=== PATIENT | male | born 1985 | race Caucasian/White ===

== ENCOUNTER → 2019-08-18 09:55 | Outpatient (CLI) | payer MEDICAID, SELFPAY ==
--- NOTE | 2019-08-18 10:03 | EKG12_ITS ---
Test Reason : IRREGULAR Blood Pressure : / mmHG Vent. Rate : 061 BPM Atrial Rate : 375 BPM P-R Int : 000 ms QRS Dur : 094 ms QT Int : 390 ms P-R-T Axes : 000 001 -04 degrees QTc Int : 392 ms Atrial fibrillation Abnormal ECG Confirmed by MARCIA QUILES, IZA ([id number]), news copy editor KYLE CALDERON ([id number]) on 08/18/2019 2:19:49 PM Referred By: Melody Solorzano Confirmed By:IZA KENNEDY MD
== END ==
PROVIDERS: PCP Nurse Practitioner Family; Referring Provider Nurse Practitioner Family; Visit Provider Nurse Practitioner Family
DX: I49.9 Cardiac arrhythmia, unspecified (principal)
CPT/HCPCS: 93005

== ENCOUNTER → 2019-08-24 15:37 | Outpatient (CLI) | payer MEDICAID, SELFPAY ==
[2019-08-24 14:40] VITALS: BMI 29.7
[2019-08-24 17:16] LABS: Free T3 3.6 pg/mL (2.18-3.98); Thyroid Stim Hormone (TSH) 4.83 uIU/mL (0.358-3.74)
== END ==
PROVIDERS: PCP Nurse Practitioner Family; Referring Provider Specialist; Visit Provider Specialist
DX: I48.0 Paroxysmal atrial fibrillation (principal)
CPT/HCPCS: 36415; 84436; 84443; 84481

== ENCOUNTER → 2019-09-08 07:54 | Outpatient (CLI) | payer MEDICAID, SELFPAY ==
[2019-08-24 14:40] VITALS: BMI 29.7
--- NOTE | 2019-09-08 07:54 | ECHOCS_ITS ---
Reason For Study: AFIB Procedure This was a 2D Doppler, Color Flow transthoracic echocardiogram. The study was technically difficult. Contrast injection was performed. Exam performed in department. Left Ventricle Normal LV size. The estimated ejection fraction is 55 %. No evidence for diastolic dysfunction. No regional wall motion abnormalities noted. Right Ventricle Normal RV size. Normal systolic function. Atria Normal left atrium. Normal right atrium. No doppler evidence for ASD. Mitral Valve There is no mitral valve stenosis. Trivial mitral valve insufficiency. Tricuspid Valve There is no tricuspid stenosis. No tricuspid valve insufficiency. Unable to estimate RV systolic pressure due to insufficient tricuspid regurgitant envelope. Aortic Valve Trisinus/trileaflet aortic valve. There is no aortic stenosis. No aortic valve insufficiency. Pulmonic Valve There is no pulmonic valvular stenosis. No pulmonic valve insufficiency. Great Vessels Normal aortic root. Pericardium/Pleural No pericardial effusion. Medication 22 gauge I.V. with prn adaptor inserted into right arm. Diluted definity 5.0ml given slow IV push to enhance endocardial definition. MMode/2D Measurements & Calculations LVIDd: 5.1 cm IVSd: 0.75 cm Ao root diam: 3.3 cm LVIDs: 4.0 cm LVPWd: 0.73 cm RVDd: 3.8 cm FS: 21.0 % LAV(MOD-bp): 48.1 ml EDV(MOD-sp4): 85.0 ml EDV(MOD-sp2): 116.8 ml LAV(MOD-bp) Indexed: 20.3 ml/m2 ESV(MOD-sp4): 60.2 ml EF(MOD-sp2): 53.5 % LAV(MOD-sp2): 40.3 ml EF(MOD-sp4): 29.2 % LAV(MOD-sp4): 49.2 ml SV(MOD-sp4): 24.8 ml SV(MOD-sp2): 62.5 ml LA A4 area: 17.8 cm2 LA dimension(2D): 3.7 cm RA A4 area: 15.3 cm2 Doppler Measurements & Calculations Ao V2 max: 118.2 cm/sec LV V1 max: 92.8 cm/sec PA V2 max: 87.5 cm/sec Ao max P.6 mmHg LV V1 max P.5 mmHg Interpretation Summary The estimated ejection fraction is 55 %. No evidence for diastolic dysfunction. Trivial mitral valve insufficiency. The study was technically difficult. Contrast injection was performed. Ordering Physician: Misael Gann Referring Physician: ALCIDES HOROWITZ Performed By: Rosa Schafer, JAIMEE, RVT
== END ==
PROVIDERS: PCP Nurse Practitioner Family; Referring Provider Specialist; Visit Provider Specialist
DX: I48.0 Paroxysmal atrial fibrillation (principal); I10 Essential (primary) hypertension; E78.5 Hyperlipidemia, unspecified
CPT/HCPCS: 93306; Q9957; A4216; C8929

== ENCOUNTER → 2019-09-17 20:19 | Outpatient (CLI) | payer MEDICAID, SELFPAY ==
[2019-08-24 14:40] VITALS: BMI 29.7
== END ==
PROVIDERS: PCP Nurse Practitioner Family; Referring Provider Specialist; Visit Provider Specialist
DX: G47.10 Hypersomnia, unspecified (principal); I48.0 Paroxysmal atrial fibrillation; I10 Essential (primary) hypertension
CPT/HCPCS: 95810

== ENCOUNTER → 2019-12-02 07:27 | Outpatient (CLI) | payer MEDICAID, SELFPAY ==
[2019-08-24 14:40] VITALS: BMI 29.7
[2019-11-04 07:47] VITALS: BMI 28.7
--- NOTE | 2019-12-02 12:43 | STRESSREP_ITS ---
Stress Test Report Date: 12/02/2019 Procedure: Exercise tolerance test/imaging study Indications: Dyspnea Consent: Per the patient Procedure: The patient exercised on a Kishan protocol for 9 minutes and 1 second achieving a peak heart rate of 230 bpm (124 % predicted maximal heart rate) with a peak blood pressure 166/88 mmHg and a peak MET capacity of 10.1 METs. The baseline ECG demonstrated atrial fibrillation, isolated PVC. The peak exercise ECG demonstrated no significant ischemic changes. EKG during recovery revealed no significant ischemic changes. [There were no cardiac dysrhythmias pretest, during exercise, or recovery]. The functional capacity was considered normal for age. There was [no complaint of chest discomfort during exercise or recovery]. The examination was discontinued secondary to dyspnea. Impression: 1. Technically adequate (percent predicted maximal heart rate greater than 85%) exercise tolerance test 2. Stress test is negative for exercise-induced EKG changes of ischemia 3. The test test is negative for exercise-induced chest pain 4. Functional capacity is normal for age 5. Nuclear images pending Myocardial perfusion imaging study: Technique: The patient was injected with 15 mCi of technetium 99m Cardiolite and subsequently rest SPECT Cardiolite nuclear imaging was obtained in the horizontal long, vertical long, and short axis views. The patient exercised on a Kishan protocol. Please see above for details. The patient was injected with 45 mCi of technetium 99m Cardiolite and subsequently stress SPECT Cardiolite nuclear imaging was obtained in the horizontal long, vertical long, and short axis views. A gated Cardiolite study at peak stress was obtained. Interpretation: Rest and stress SPECT Cardiolite nuclear imaging status post realignment, normalization, and attenuation correction, demonstrates mildly decreased radioisotope uptake in the inferior wall prior to attenuation correction. After attenuation correction there is overall no evidence of significant fixed or reversible defect suggestive of significant ischemia or infarction. These findings are suggestive of diaphragmatic attenuation artifact. The gated Cardiolite study demonstrates no significant regional wall motion abnormalities. The reported LVEF is 60 %. Impression: 1. There is no evidence of significant ischemia or infarction. 2. The gated Cardiolite study reports an LVEF of 60 %. This note was generated with [employer] software. It may contain incorrect words, spelling, and punctuation that were not noted in checking the note before signing.
== END ==
PROVIDERS: PCP Nurse Practitioner Family
DX: R94.31 Abnormal electrocardiogram [ECG] [EKG] (principal)
CPT/HCPCS: 78452; 93017; A9500; A4216

== ENCOUNTER → 2021-01-06 08:39 | Outpatient (CLI) | payer MEDICAID, SELFPAY ==
[2019-11-04 07:47] VITALS: BMI 28.7
--- NOTE | 2021-01-06 08:44 | EKG12_ITS ---
Test Reason : Blood Pressure : / mmHG Vent. Rate : 072 BPM Atrial Rate : 072 BPM P-R Int : 176 ms QRS Dur : 094 ms QT Int : 368 ms P-R-T Axes : 049 051 058 degrees QTc Int : 402 ms Normal sinus rhythm Normal ECG Confirmed by NILO WEN MD ([id number]), photo editor GAYLE TADEO ([id number]) on 01/09/2021 10:49:22 AM Referred By: MILDRED HICKS Confirmed By:NILO WEN MD
== END ==
PROVIDERS: PCP Nurse Practitioner Family
DX: I48.0 Paroxysmal atrial fibrillation (principal)
CPT/HCPCS: 93005

== ENCOUNTER → 2021-01-13 08:51 | Outpatient (CLI) | payer MEDICAID, SELFPAY ==
[2019-11-04 07:47] VITALS: BMI 28.7
--- NOTE | 2021-01-13 08:55 | EKG12_ITS ---
Test Reason : CARDIOVERSION Blood Pressure : / mmHG Vent. Rate : 070 BPM Atrial Rate : 070 BPM P-R Int : 164 ms QRS Dur : 098 ms QT Int : 380 ms P-R-T Axes : 046 053 057 degrees QTc Int : 410 ms Normal sinus rhythm Normal ECG Confirmed by BEHZAD QUILES, NILO ([id number]), assistant film editor KANDY MAC ([id number]) on 01/18/2021 2:28:31 PM Referred By: MILDRED HICKS Confirmed By:NILO WEN MD
== END ==
PROVIDERS: PCP Nurse Practitioner Family
DX: I48.0 Paroxysmal atrial fibrillation (principal)
CPT/HCPCS: 93005

== ENCOUNTER → 2021-01-20 08:30 | Outpatient (CLI) | payer MEDICAID, SELFPAY ==
[2019-11-04 07:47] VITALS: BMI 28.7
--- NOTE | 2021-01-20 08:32 | EKG12_ITS ---
Test Reason : Blood Pressure : / mmHG Vent. Rate : 070 BPM Atrial Rate : 070 BPM P-R Int : 184 ms QRS Dur : 098 ms QT Int : 366 ms P-R-T Axes : 046 038 045 degrees QTc Int : 395 ms Normal sinus rhythm Normal ECG Confirmed by BEHZAD QUILES, NILO ([id number]), graphic editor GAYLE TADEO ([id number]) on 01/23/2021 12:46:11 PM Referred By: MILDRED HICKS Confirmed By:NILO WEN MD
== END ==
PROVIDERS: PCP Nurse Practitioner Family
DX: I48.0 Paroxysmal atrial fibrillation (principal)
CPT/HCPCS: 93005

== ENCOUNTER → 2021-01-27 08:30 | Outpatient (CLI) | payer MEDICAID, SELFPAY ==
[2019-11-04 07:47] VITALS: BMI 28.7
--- NOTE | 2021-01-27 08:33 | EKG12_ITS ---
Test Reason : POST CARDIOVERSION Blood Pressure : / mmHG Vent. Rate : 065 BPM Atrial Rate : 065 BPM P-R Int : 164 ms QRS Dur : 096 ms QT Int : 394 ms P-R-T Axes : 048 028 042 degrees QTc Int : 409 ms Normal sinus rhythm Normal ECG Confirmed by JAMIE QUILES, JAVIER ([id number]), editorial manager GAYLE TADEO ([id number]) on 01/30/2021 9:49:49 AM Referred By: MILDRED HICKS Confirmed By:ALENA AYALA MD
== END ==
PROVIDERS: PCP Nurse Practitioner Family
DX: I48.0 Paroxysmal atrial fibrillation (principal)
CPT/HCPCS: 93005

== ENCOUNTER → 2023-02-12 | Outpatient (CLI) | payer MEDICAID, SELFPAY ==
--- NOTE | 2023-02-12 16:52 | US_ITS ---
STUDY: THYROID ULTRASOUND REASON FOR EXAM: Male, 38 years old. ENLARGED THYROID TECHNIQUE: Ultrasound evaluation of the thyroid was performed with real-time and static rich-scale imaging. COMPARISON: None. FINDINGS: RIGHT LOBE: The right lobe of the thyroid gland is enlarged and measures 5.4 cm x 1.5 cm x 1 cm. There is a homogeneous echotexture. There is a 4 mm x 2 mm x 1 mm cystic nodule in the midpole of the right lobe. LEFT LOBE: The left lobe of the thyroid gland is enlarged and measures 5.5 cm x 1.9 cm x 1.3 cm. There is a homogeneous echotexture. Scattered tiny cystic nodule seen in the left lobe. The largest measures 3 mm x 4 mm x 2 mm. ISTHMUS: The isthmus measures 3 mm. The regional lymph nodes are normal. US/Thyroid IMPRESSION: Tiny cystic nodules are seen in both lobes of the thyroid slightly more prominent on the left side. Electronically Signed: Leif Ponce MD at 14:08 EDT ,
[2023-02-12 17:09] LABS: Hematocrit 47.1 % (40-54); Mean Corpuscular Hgb 29.9 pg (27.0-32.0); Mean Corpuscular Volume 87.9 fL (80-94); Mean Platelet Vol. 10.8 fl (6.2-12.0); Platelet Count 282 K/mm3 (150-450); RBC Distribution Width CV 12.7 % (11.6-14.6); RBC Distribution Width SD 40.9 fl (35.1-43.9); Red Blood Count 5.36 M/mm3 (4.6-6.2); White Blood Count 12.6 K/mm3 (4.4-11.0)
[2023-02-12 17:48] LABS: ALB/GLOB Ratio 1.3 RATIO (0.9-2.4); AST(SGOT) 18 U/L (15-37); Alanine Aminotransfer ALT/SGPT 26 U/L (16-61); Albumin, Serum 4.3 g/dL (3.2-5.0); Alkaline Phosphatase 89 U/L (45-117); Anion Gap 4 (5-15); BUN 9 mg/dL (7-18); BUN/Creat Ratio 9.2 RATIO (10-20); Calcium,Total 9.2 mg/dL (8.5-10.1); Chloride 105 mmol/L (98-107); Cholesterol 173 mg/dL (200); Creatinine, Serum 0.97 mg/dL (0.70-1.30); EST Glomerular Filtration Rate 91 mL/min (>60); Est Glom Filt Rate - Afr Amer 110 mL/min (>60); Globulin 3.4 g/dL (2.2-4.2); Glucose 90 mg/dL (74-106); High Density Lipoprotein 58 mg/dL; Potassium 3.7 mmol/L (3.5-5.1); Protein, Total 7.7 g/dL (6.4-8.2); Sodium Level 137 mmol/L (136-145); T4 Free Direct 1.05 ng/dL (0.76-1.46); Thyroid Stim Hormone (TSH) 3.24 uIU/mL (0.358-3.74); Triglycerides 284 mg/dL; Very Low Density Lipoprotein 57 mg/dL (5-40)
== END | disposition home or self-care (01) ==
LOC: US 16:49
PROVIDERS: PCP Nurse Practitioner Family; Referring Provider Nurse Practitioner Family; Visit Provider Nurse Practitioner Family
DX: Z00.00 Encounter for general adult medical examination without abnormal findings (principal); E03.8 Other specified hypothyroidism; I10 Essential (primary) hypertension; J45.40 Moderate persistent asthma, uncomplicated
CPT/HCPCS: 36415; 76536; 80053; 80061; 84439; 84443; 85027

== ENCOUNTER → 2023-04-22 | Outpatient (CLI) | payer MEDICAID, SELFPAY ==
[2023-04-24 04:07] LABS: Thyroid Peroxidase AB 14 IU/mL (0-34)
== END | disposition home or self-care (01) ==
LOC: LAB 12:59
PROVIDERS: PCP Nurse Practitioner Family; Referring Provider Nurse Practitioner Family; Visit Provider Nurse Practitioner Family
DX: E01.0 Iodine-deficiency related diffuse (endemic) goiter (principal); Z13.29 Encounter for screening for other suspected endocrine disorder
CPT/HCPCS: 36415; 86376